=== PATIENT | male | born 1950 | race Caucasian/White ===

== ENCOUNTER 2017-08-21 09:38 | Day surgery (SDC) | payer OTHER ==
[2017-08-15 09:58] VITALS: BMI 30.7
[2017-08-21] MEDS ORDERED: PROPOFOL 20 ML ONE ×2 (10:29)
[2017-08-21] MEDS ORDERED: LIDOCAINE HCL/PF 2% SDV 5ML VIAL ONE (11:10)
[2017-08-21 12:53] VITALS: BP 112/71; PULSE 78; TEMP 97.8
--- NOTE | 2017-08-23 15:43 | PATH ---
Surgical Pathology Report Patient Name: KIRSTEN BUTLER [facility] Rec. #: [id number] /Age/Gender: 1950 (Age: 67) / M Account: [id number] Location: [facility] Taken: 08/21/2017 Received: 08/21/2017 Reported: 08/23/2017 Physicians: Ashlie Crocker M.D. Specimen(s) Received A: BX ASCENDING COLON B: BX TRANSVERSE COLON Clinical History Preoperative diagnosis: Rule out colon cancer Postoperative diagnosis: Polyp Final Diagnosis A. COLON, ASCENDING, BIOPSY: TUBULAR ADENOMA. B. COLON, TRANSVERSE, BIOPSY: TUBULAR ADENOMA AND HYPERPLASTIC POLYP. Electronically Signed Victor M Chavez M.D. Gross Description A. Received in formalin, labeled "ascending colon" is a [place], irregular portion of soft tissue measuring 0.2 cm. in greatest dimension. The specimen is submitted in toto in one cassette. B. Received in formalin, labeled "transverse" is a [place], irregular portion of soft tissue measuring 0.5 cm. in greatest dimension. The specimen is submitted in toto in one cassette. 08/22/2017 saudi08/22/2017
== END 2017-08-21 12:57 | disposition home or self-care (01) ==
LOC: FASU 09:38
PROVIDERS: ATTEND Internal Medicine Gastroenterology
PROC: 3E0H8GC Introduction of Other Therapeutic Substance into Lower GI, Via Natural or Artificial Opening Endoscopic (ICD-10-PCS; 2017-08-21)
PROC: 0DBK8ZX Excision of Ascending Colon, Via Natural or Artificial Opening Endoscopic, Diagnostic (ICD-10-PCS; principal; 2017-08-21 11:41)
PROC: 0DBL8ZX Excision of Transverse Colon, Via Natural or Artificial Opening Endoscopic, Diagnostic (ICD-10-PCS; 2017-08-21 11:41)
DX: Z12.11 Encounter for screening for malignant neoplasm of colon (principal); D12.2 Benign neoplasm of ascending colon; D12.3 Benign neoplasm of transverse colon; K64.8 Other hemorrhoids
CPT/HCPCS: 82962; 88305-TC

== ENCOUNTER 2017-11-13 08:06 | Day surgery (SDC) | payer OTHER ==
[2017-11-07 10:49] VITALS: BMI 30.1
[2017-11-13] MEDS ORDERED: PROPOFOL 20 ML ONE ×2 (08:13)
[2017-11-13] MEDS ORDERED: LIDOCAINE HCL/PF 2% SDV 5ML VIAL ONE ×2 (08:13→10:02)
[2017-11-13 09:31] VITALS: TEMP 97.8
[2017-11-13 11:35] VITALS: BP 126/70; PULSE 72
--- NOTE | 2017-11-17 19:21 | PATH ---
Surgical Pathology Report Patient Name: KIRSTEN BUTLER [facility]. Rec. #: [id number] /Age/Gender: 1950 (Age: 67) / M Account: [id number] Location: [facility] Taken: 11/13/2017 Received: 11/13/2017 Reported: 11/17/2017 Physicians: Ashlie Crocker M.D. Specimen(s) Received A: CECAL VALVE B: ASCENDING COLON AT INK SITE C: DESCENDING COLON Clinical History History of polyps Postoperative diagnosis: Thickened fold in cecum, polyps, diverticulosis, hemorrhoids Final Diagnosis A. CECAL VALVE, BIOPSY: COLONIC MUCOSA SHOWING MILD SURFACE HYPERPLASTIC CHANGE. B. DESCENDING COLON AT INK SITE, BIOPSY: COLONIC MUCOSA SHOWING MILD SURFACE HYPERPLASTIC CHANGE. C. DESCENDING COLON, POLYP, POLYPECTOMY: TUBULAR ADENOMA. Electronically Signed Syl Lewis M.D. Gross Description A. Received in formalin, labeled "cecal valve" is a [place], irregular portion of soft tissue measuring 0.3 cm. in greatest dimension. The specimen is submitted in toto in one cassette. B. Received in formalin, labeled "ascending colon at ink site" are 4 ob[place], irregular portions of soft tissue ranging from 0.2-0.6 cm. in greatest dimension. The specimens are submitted in toto in one cassette. C. Received in formalin, labeled "descending colon" is a ob[place], irregular portion of soft tissue measuring 0.3 cm. in greatest dimension. The specimen is submitted in toto in one cassette. 11/14/2017 saudi11/14/2017
== END 2017-11-13 11:20 | disposition home or self-care (01) ==
LOC: FASU-ENDO 08:06
PROVIDERS: ATTEND Internal Medicine Gastroenterology
PROC: 0DBM8ZX Excision of Descending Colon, Via Natural or Artificial Opening Endoscopic, Diagnostic (ICD-10-PCS; 2017-11-13)
PROC: 0DBH8ZX Excision of Cecum, Via Natural or Artificial Opening Endoscopic, Diagnostic (ICD-10-PCS; 2017-11-13)
PROC: 3E0H8GC Introduction of Other Therapeutic Substance into Lower GI, Via Natural or Artificial Opening Endoscopic (ICD-10-PCS; 2017-11-13)
PROC: 0DBK8ZX Excision of Ascending Colon, Via Natural or Artificial Opening Endoscopic, Diagnostic (ICD-10-PCS; principal; 2017-11-13 10:14)
DX: Z86.010 Personal history of colon polyps (principal); K57.30 Diverticulosis of large intestine without perforation or abscess without bleeding; K64.8 Other hemorrhoids; D12.4 Benign neoplasm of descending colon
CPT/HCPCS: 82962; 88305-TC